=== PATIENT | female | born 1970 | race African-American/Black ===

== ENCOUNTER 2017-06-24 06:29 | Day surgery (SDC) | payer OTHER ==
[2017-06-21 08:47] VITALS: BMI 26.9
[~2017-06-24 06:29] MED LIST: DEXAMETHASONE SOD PHOSPHATE 10 MG/ML 1 ML VIAL IV ONE; HEPARIN SODIUM,PORCINE 5,000 UNIT/ML 1 ML VIAL SQ ONE; HYDROmorphone 0.5 MG/0.5 ML SYRINGE IVP PRN; LACTATED RINGERS 1,000 ML IV SCH; MORPHINE SULFATE 4 MG/ML SYRINGE IV PRN; ONDANSETRON 4 MG/2 ML VIAL IVP ONE; PROMETHAZINE INJ 6.25 MG in SODIUM CHLORIDE 0.9% 50 ML IVPB PRN; Pre Op ABX Message 1 EACH MISC MISCELLANE ONE
[2017-06-24 07:07] VITALS: RESP 16; TEMP 98
[2017-06-24] MEDS ORDERED: LIDOCAINE 1% 20 ML VIAL (10MG/ML) FOR IV START INTRADERMA ONE (07:07)
--- NOTE | 2017-06-24 07:41 | P.GSHP ---
History of Present Illness H&P Date: 06/24/17 Chief Complaint: Left upper back skin lesion This a 46-year-old female who is a chronically inflamed left upper back/ shoulder skin lesion. She does today for excision. The lesion has been chronically inflamed for several months. Past Medical History Past Medical History: Cancer, Hyperlipidemia, Hypertension, Thyroid Disorder Additional Past Medical History / Comment(s): Hx of Thyroid CA History of Any Multi-Drug Resistant Organisms: None Reported Past Surgical History: Tubal Ligation Additional Past Surgical History / Comment(s): Thyroidectomy Past Anesthesia/Blood Transfusion Reactions: No Reported Reaction Smoking Status: Current every day smoker - Past Family History Mother Family Medical History: No Reported History Medications and Allergies Home Medications Medication Instructions Recorded Confirmed Type Atorvastatin [Lipitor] 10 mg PO DAILY 06/21/17 06/24/17 History Levothyroxine Sodium 400 mcg PO DAILY 06/21/17 06/24/17 History Lisinopril 40 mg PO DAILY 06/21/17 06/24/17 History Nicotine 21Mg/24Hr Patch [Habitrol 1 each TRANSDERM DAILY 06/21/17 06/24/17 History 21Mg/24Hr Patch] hydrALAZINE HCL [Apresoline] 100 mg PO TID 06/21/17 06/24/17 History Allergies Allergy/AdvReac Type Severity Reaction Status Date / Time No Known Allergies Allergy Verified 06/24/17 06:41 Surgical - Exam Vital Signs Temp Pulse Resp BP Pulse Ox 98 F 100 16 142/91 100 06/24/17 07:05 06/24/17 07:05 06/24/17 07:05 06/24/17 07:05 06/24/17 07:05 - General well developed, no distress - Integumentary 3 cm upper back/shoulder skin lesion on the left side. The lesion is chronically inflamed. Assessment and Plan Assessment: We'll perform excision of upper left back/shoulder skin lesion.
[2017-06-24] MEDS ORDERED: PROPOFOL 10 MG/ML 20 ML VIAL IV ONE (07:43)
[2017-06-24] MEDS ORDERED: fentaNYL (PF) 50 MCG/ML 2 ML AMP ONE (07:43)
[2017-06-24] MEDS ORDERED: SODIUM CHLORIDE 0.9% 50 ML with ceFAZolin 2,000 MG IV ONE ×2 (08:00)
[2017-06-24] MEDS ORDERED: BUPIVACAINE (PF) 0.25% 30 ML VIAL SQ ONE ×2 (08:03)
[2017-06-24 08:54] VITALS: PULSE 85
[2017-06-24 09:13] VITALS: BP 113/74
--- NOTE | 2017-06-24 10:11 | P.OP ---
Date of Procedure: 06/24/17 Preoperative Diagnosis: Left shoulder skin lesion Postoperative Diagnosis: Left shoulder skin lesion Procedure(s) Performed: Excision of left shoulder skin lesion Anesthesia: MAC Surgeon: Espinoza Soto Estimated Blood Loss (ml): 5 Pathology: other (Left shoulder skin lesion) Condition: stable Disposition: PACU Description of Procedure: The patient's placed on the operative table in the supine position. She received IV sedation. She then placed in the lateral position. Her left shoulder back was prepped and draped usual sterile fashion. The patient had a 2 cm skin lesion in the left upper back/shoulder. The area was anesthetized with 1% local Xylocaine. Elliptical skin incision was made around the lesion. And then using cautery the lesion was dissected and sent to pathology. The specimen measured 3 x 5 cm. The deep layer was closed with 3-0 Vicryl. Skin was closed interrupted 3-0 Monocryl suture. exofin dressing was applied. Patient tolerated the procedure well and sent to recovery in stable condition.
--- NOTE | 2017-06-28 11:55 | CDI ---
Outpatient Documentation Clarification Form Date: 06/28/17 CDS/Shelf Filler Name: Geovanna Graves Phone: If any questions, call Rachell Harvey Team Leader at [phone] Patient Name: Sara Garcia Admit Date: 06/24/17 Discharge Date: 06/24/17 ATTENTION: The [facility] Coding Staff appreciate your assistance in clarifying documentation. Please respond to the clarification below the line at the bottom and electronically sign. The [facility] Coding staff will review the response and follow-up if needed. Please note: Queries are made part of the Legal Health Record. If you have any questions, please contact the Team Leader. Dear Dr. Soto, What is the size of the repair/closure? Thank you for your kind consideration. The repair was 5 cm in length_ MTDD
== END 2017-06-24 09:25 | disposition home or self-care (01) ==
LOC: OR 06:29
PROVIDERS: ATTEND Surgery
DX: L72.0 Epidermal cyst (principal); L02.212 Cutaneous abscess of back [any part, except buttock and flank]; L90.5 Scar conditions and fibrosis of skin; M79.89 Other specified soft tissue disorders; L92.3 Foreign body granuloma of the skin and subcutaneous tissue; E78.5 Hyperlipidemia, unspecified; I10 Essential (primary) hypertension; E89.0 Postprocedural hypothyroidism; Z85.850 Personal history of malignant neoplasm of thyroid; Z79.890 Hormone replacement therapy; Z79.899 Other long term (current) drug therapy; Z98.51 Tubal ligation status; F17.210 Nicotine dependence, cigarettes, uncomplicated
CPT/HCPCS: 11406; 12032; 81025; 88304; J1644; J1100; J2405; J3010; J0690; J2704

== ENCOUNTER → 2017-12-01 | Outpatient (CLI) | payer OTHER ==
--- NOTE | 2017-12-01 12:49 | CT ---
EXAMINATION TYPE: CT angio chest DATE OF EXAM: 12/01/2017 COMPARISON: None HISTORY: 46-year-old female Elevated D dimer TECHNIQUE: Contiguous axial scanning of the chest performed with IV Contrast, patient injected with 6 1 mL of Isovue 370. Coronal/sagittal MIP reconstructions performed. CT DLP: 411.8 mGycm Automated exposure control for dose reduction was used. FINDINGS: Heart normal size without pericardial effusion. Aorta normal caliber with bovine configuration to the aortic arch and additional direct takeoff of th e left vertebral artery directly from the aortic arch. Borderline sized to slightly prominent bilateral hilar lymph nodes are noted measuring up to 8 mm on the right and 6 cm on the left. This closely approximates the camacho of the central pulmonary arteries . However, no definite pulmonary embolus is identified. Mild diffuse bronchial wall thickening. Mild thickening along the left major fissure and additional p leural-based thickening along the posterior left mid thorax, suspected pleural fluid. The fluid does not track down to the left costophrenic angle. No thoracic lymphadenopathy by CT size criteria. Tiny hiatal hernia. Inferior splenule. Mild diffuse thickening of the left adrenal gland without dis crete nodularity. Bones: Degenerative changes at the left glenohumeral joint. IMPRESSION: 1. NONSPECIFIC PROMINENT BILATERAL HILAR LYMPH NODES MEASURING UP TO 8 MM. LIKELY REACTIVE/POST INFLA MMATORY. 2. NO CONVINCING EVIDENCE FOR PULMONARY EMBOLUS. 3. MILD DIFFUSE BRONCHIAL WALL THICKENING COULD REFLECT BRONCHITIS OR CHRONIC ASTHMA. 4. SOME THICKENING ALONG THE MAJOR FISSURE AND ADDITIONAL PLEURAL-BASED THICKENING ALONG THE POSTERIO R MID LEFT HEMITHORAX. A SMALL PLEURAL EFFUSION IS SUSPECTED. HOWEVER, THREE-MONTH FOLLOW-UP IS RECOM MENDED TO EXCLUDE SOFT TISSUE THICKENING THIS IS NOT SEEN TO FLOW FREELY DOWN TO THE LEFT COSTOPHR ENIC ANGLE.
== END ==
LOC: RADCTMAIN 10:26
PROVIDERS: ATTEND Family Medicine
DX: J98.8 Other specified respiratory disorders (principal)
CPT/HCPCS: 71275; Q9967

== ENCOUNTER → 2017-12-28 | Outpatient (CLI) | payer OTHER ==
--- NOTE | 2017-12-28 10:02 | ECHOF ---
Referral Reason:R01.1 Cardiac Murmur MEASUREMENTS -------- HEIGHT: 157.5 cm WEIGHT: 101.6 kg BP: RVIDd: 2.8 cm (< 3.3) IVSd: 1.2 cm (0.6 - 1.1) LVIDd: 3.5 cm (3.9 - 5.3) LVPWd: 1.4 cm (0.6 - 1.1) IVSs: 1.2 cm LVIDs: 2.4 cm LVPWs: 1.7 cm Ao Diam: 3.1 cm (2.0 - 3.7) AV Cusp: 2.0 cm (1.5 - 2.6) LA Diam: 2.3 cm (2.7 - 3.8) MV EXCURSION: 10.022 mm (> 18.000) MV EF SLOPE: 76 mm/s (70 - 150) EPSS: 0.3 cm MV E Mane: 0.98 m/s MV DecT: 153 ms MV A Mane: 1.28 m/s MV E/A Ratio: 0.76 RAP: 5.00 mmHg RVSP: 11.86 mmHg FINDINGS -------- Sinus rhythm. This was a technically good study. The left ventricular size is normal. There is moderate concentric left ventricular hypertrophy. O verall left ventricular systolic function is normal with, an EF between 55 - 60 %. The right ventricle is normal in size. The left atrium is normal in size. The right atrium is normal in size. The aortic valve is trileaflet, and appears structurally normal. No aortic stenosis or regurgitation. The mitral valve leaflets are mildly thickened. Trace tricuspid regurgitation present. The right ventricular systolic pressure, as measured by Dopp ler, is 11.86mmHg. Pulmonic valve appears structurally normal. The aortic root size is normal. Normal inferior vena cava with normal inspiratory collapse consistent with estimated right atrial pre ssure of 5 mmHg. There is a small pericardial effusion located near the left ventricle. Large Pleural Effusion. CONCLUSIONS -------- 1. Sinus rhythm. 2. This was a technically good study. 3. The left ventricular size is normal. 4. There is moderate concentric left ventricular hypertrophy. 5. Overall left ventricular systolic function is normal with, an EF between 55 - 60 %. 6. The right ventricle is normal in size. 7. The left atrium is normal in size. 8. The right atrium is normal in size. 9. The aortic valve is trileaflet, and appears structurally normal. No aortic stenosis or regurgitati on. 10. The mitral valve leaflets are mildly thickened. 11. Trace tricuspid regurgitation present. 12. The right ventricular systolic pressure, as measured by Doppler, is 11.86mmHg. 13. Pulmonic valve appears structurally normal. 14. The aortic root size is normal. 15. Normal inferior vena cava with normal inspiratory collapse consistent with estimated right atrial pressure of 5 mmHg. 16. Large Pleural Effusion. STONE CLEANER: Marilin Mcghee RDCS
== END | disposition home or self-care (01) ==
LOC: RADECHMAIN 08:12
PROVIDERS: ATTEND Family Medicine
DX: I51.7 Cardiomegaly (principal); I34.8 Other nonrheumatic mitral valve disorders; J90 Pleural effusion, not elsewhere classified
CPT/HCPCS: 93306